=== PATIENT | female | born 1930 | race Caucasian/White ===

== ENCOUNTER 2020-12-29 11:38 | Inpatient (IN) | payer MEDICARE, OTHER ==
[2020-12-29] MEDS ORDERED: Cefepime 2 GM VIAL ONE (12:27)
[2020-12-29 12:43] LABS: #Basophils 0.1 10x3/uL (0.0-0.2); #Monocytes 1.4 10x3/uL (0.0-1.1); #Neutrophils 10.5 10x3/uL (1.5-8.4); %Basophils 0.4 % (0.0-2.0); %Eosinophils 0.2 % (0.0-6.0); %Neutrophils 82.8 % (40.0-75.0); Hemoglobin 10.4 g/dL (12.0-15.5); Mean Corpuscular Volume 87.6 fl (81.6-98.3); Mean Platelet Volume 9.4 fl (7.4-10.4); Platelet Count 321 10x3/uL (150-450); RBC Distribution Width 16.5 % (11.5-14.5); Red Blood Cell (RBC) Count 3.71 10x6/uL (3.90-5.03); White Blood Cell (WBC) Count 12.7 10x3/uL (3.5-10.5)
[2020-12-29] MEDS ORDERED: Vancomycin HCl 1 GM in Sodium Chloride 0.9% 250 ML 250 ML IVPB SCH (12:45)
[2020-12-29 12:51] LABS: Anion Gap 15 mmol/L (10-20); BUN (Urea Nitrogen) 40 mg/dL (9.8-20.1); Calc. Creatinine Clearance 0 mL/min (70-130); Carbon Dioxide 16 mmol/L (23-31); Chloride 112 mmol/L (98-107); Potassium 4.6 mmol/L (3.5-5.1); Sodium 138 mmol/L (136-145)
[2020-12-29 12:52] LABS: ALT (SGPT) 10 U/L (8-55); AST (SGOT) 11 U/L (5-34); Albumin 3.4 g/dL (3.4-4.8); Alkaline Phosphatase 34 U/L (40-110); Bilirubin, Total 0.6 mg/dL (0.2-1.2); CK (CPK) 18 U/L (29-168); Calcium 8.3 mg/dL (7.8-10.44); Globulin 1.9 g/dL (2.4-3.5); Glucose 107 mg/dL (83-110); Lipase 44 U/L (8-78); Protein, Total 5.3 g/dL (5.8-8.1)
[2020-12-29 13:05] LABS: Bilirubin 1+ (Negative); Blood, Urine 25 (Negative); Clarity Slightly Cloudy (Clear); Glucose, Urine (Dipstick) Normal (Negative); Ketone, Urine 5 mg/dL (Negative); Leukocyte 100 (Negative); Nitrite Negative (Negative); Protein, Urine (Dipstick) 100 mg/dl (Neg-Trace); Urobilinogen Normal mg/dL (Less than 2)
[2020-12-29 13:13] LABS: RBC/HPF 0-3 HPF (0-3)
[2020-12-29 13:14] LABS: Bacteria/HPF 3+ HPF (None Seen); Mucous/LPF 1+ LPF (<2+); Squamous Epithelial 0-3 HPF (0-3); Transitional Epithelial 0-3 HPF (None Seen)
[2020-12-29 13:24] LABS: CKMB 3.5 ng/mL (0-6.6)
[2020-12-29] MEDS ORDERED: Aspirin 325 MG TAB ONE (13:42)
[2020-12-29] MEDS ORDERED: Ondansetron PF 4 MG/2 ML Vial ONE (13:42)
[2020-12-29] MEDS ORDERED: Dextrose 5 %-0.45 % NaCl 1,000 ML IV SCH (14:30)
[2020-12-29 15:36] LABS: Magnesium 1.7 mg/dL (1.6-2.6)
[2020-12-29 15:52] LABS: Troponin I 0.079 ng/mL (< 0.028)
[2020-12-29 15:55] LABS: SARS-CoV-2 NAA Rapid Test Not Detected (NotDetected)
[2020-12-29] MEDS ORDERED: Ondansetron ODT 4 MG TAB PO PRN (19:00)
[2020-12-29] MEDS ORDERED: Ondansetron PF 4 MG/2 ML Vial IVP PRN (19:00)
[2020-12-29] MEDS ORDERED: Lorazepam 2 MG/ML VIAL SLOW IVP PRN (19:06)
[2020-12-29] MEDS ORDERED: Lorazepam 2 MG/ML VIAL SLOW IVP SCH (19:15)
[2020-12-29 19:49] LABS: Troponin I 0.078 ng/mL (< 0.028)
[2020-12-29] MEDS ORDERED: Magnesium 2 GM/50 ML 2 GM in Premix Bag 1 BAG IVPB SCH (20:00)
[2020-12-29] MEDS: Sodium Bicarbonate Tab 325 MG TAB PO SCH (20:41)
[2020-12-29] MEDS ORDERED: FLU VACC QS2021-22(65YR UP)/PF 240 MCG/0.7 ML SYRINGE IM ONE (21:30)
[2020-12-29] MEDS ORDERED: Vancomycin 1 GM in Premix Bag 1 BAG IVPB PRN (23:59)
[2020-12-30 04:11] LABS: #Eosinphils 0.2 10x3/uL (0.0-0.5); #Neutrophils 8.1 10x3/uL (1.5-8.4); %Basophils 0.4 % (0.0-2.0); %Eosinophils 1.5 % (0.0-6.0); %Lymphocytes 10.2 % (18.0-47.0); %Monocytes 9.3 % (0.0-10.0); %Neutrophils 78.3 % (40.0-75.0); Hemoglobin 9.9 g/dL (12.0-15.5); Mean Corpuscular HGB CONC 31.7 g/dL (32.0-36.0); Mean Corpuscular Hemoglobin 27.6 pg (27.0-33.0); Mean Corpuscular Volume 86.9 fl (81.6-98.3); Mean Platelet Volume 9.9 fl (7.4-10.4); Platelet Count 313 10x3/uL (150-450); RBC Distribution Width 16.6 % (11.5-14.5); Red Blood Cell (RBC) Count 3.59 10x6/uL (3.90-5.03); White Blood Cell (WBC) Count 10.3 10x3/uL (3.5-10.5)
[2020-12-30 04:20] LABS: Vancomycin, Random 13.9 ug/mL (See Comment)
[2020-12-30 04:25] LABS: Anion Gap 14 mmol/L (10-20); BUN (Urea Nitrogen) 30 mg/dL (9.8-20.1); Calc. Creatinine Clearance 17 mL/min (70-130); Calcium 7.7 mg/dL (7.8-10.44); Carbon Dioxide 12 mmol/L (23-31); Chloride 118 mmol/L (98-107); Glucose 89 mg/dL (83-110); Potassium 4.9 mmol/L (3.5-5.1); Sodium 139 mmol/L (136-145)
[2020-12-30 04:31] LABS: Magnesium 2.1 mg/dL (1.6-2.6)
[2020-12-30] MEDS: Pantoprazole 40 MG VIAL IVP SCH (09:21)
[2020-12-30] MEDS: Aspirin 81 mg Enteric Coated Tablet PO SCH (09:21)
[2020-12-30] MEDS: Sodium Bicarbonate Tab 325 MG TAB PO SCH ×2 (09:21→19:44)
[2020-12-30] MEDS ORDERED: TICAGRELOR 90 MG TABLET PER TUBE SCH (10:30)
[2020-12-30] MEDS ORDERED: ADMIXTURE FEE IVPB SCH (12:00)
[2020-12-30] MEDS ORDERED: SODIUM CHLORIDE IVPB SCH (12:00)
[2020-12-30] MEDS ORDERED: CEFEPIME IVPB SCH (12:00)
[2020-12-30] MEDS ORDERED: Lorazepam 2 MG/ML VIAL SLOW IVP PRN (18:17)
[2020-12-30] MEDS ORDERED: traMADol HCl 50 MG TAB PO PRN (18:47)
[2020-12-30] MEDS: Cefepime 0.5 GM, Admixture Fee 1 EACH in Sodium Chloride 0.9% 100 ML IVPB SCH (19:34)
[2020-12-30] MEDS: TICAGRELOR 90 MG TABLET PER TUBE SCH (19:45)
[2020-12-30] MEDS: risperiDONE 0.5 MG TAB PO SCH (19:53)
[2020-12-31 04:34] LABS: Anion Gap 18 mmol/L (10-20); BUN (Urea Nitrogen) 19 mg/dL (9.8-20.1); Calc. Creatinine Clearance 32 mL/min (70-130); Calcium 8.2 mg/dL (7.8-10.44); Carbon Dioxide 12 mmol/L (23-31); Chloride 115 mmol/L (98-107); Glucose 86 mg/dL (83-110); Magnesium 2.1 mg/dL (1.6-2.6); Potassium 4.4 mmol/L (3.5-5.1); Sodium 141 mmol/L (136-145); Vancomycin, Random 7.1 ug/mL (See Comment)
[2020-12-31] MEDS: Levothyroxine Sodium 50 MCG TAB PO SCH (06:10)
[2020-12-31 07:40] LABS: #Eosinphils 0.1 10x3/uL (0.0-0.5); #Monocytes 1.3 10x3/uL (0.0-1.1); #Neutrophils 9.5 10x3/uL (1.5-8.4); %Basophils 0.3 % (0.0-2.0); %Eosinophils 0.5 % (0.0-6.0); %Monocytes 10.7 % (0.0-10.0); Hemoglobin 10.8 g/dL (12.0-15.5); Mean Corpuscular HGB CONC 30.7 g/dL (32.0-36.0); Mean Corpuscular Hemoglobin 27.8 pg (27.0-33.0); Mean Corpuscular Volume 90.7 fl (81.6-98.3); Mean Platelet Volume 9.9 fl (7.4-10.4); Platelet Count 306 10x3/uL (150-450); RBC Distribution Width 16.4 % (11.5-14.5); Red Blood Cell (RBC) Count 3.88 10x6/uL (3.90-5.03); White Blood Cell (WBC) Count 11.7 10x3/uL (3.5-10.5)
[2020-12-31] MEDS: Aspirin 81 mg Enteric Coated Tablet PO SCH (08:16)
[2020-12-31] MEDS: TICAGRELOR 90 MG TABLET PER TUBE SCH ×2 (08:16→20:06)
[2020-12-31] MEDS: Pantoprazole 40 MG VIAL IVP SCH (08:16)
[2020-12-31] MEDS: predniSONE 10 MG TAB PO SCH (08:16)
[2020-12-31] MEDS: Sodium Bicarbonate Tab 325 MG TAB PO SCH ×2 (08:16→20:22)
[2020-12-31] MEDS ORDERED: Vancomycin HCl 500 MG in Sodium Chloride 0.9% 100 ML IVPB SCH (08:30)
[2020-12-31] MEDS ORDERED: Carvedilol 6.25 MG TAB PO SCH (09:45)
[2020-12-31] MEDS: Cefepime 0.5 GM, Admixture Fee 1 EACH in Sodium Chloride 0.9% 100 ML IVPB SCH (11:08)
[2020-12-31] MEDS: Carvedilol 6.25 MG TAB PO SCH (18:31)
[2020-12-31] MEDS: risperiDONE 0.5 MG TAB PO SCH (20:06)
[2021-01-01] MEDS: Levothyroxine Sodium 50 MCG TAB PO SCH (05:26)
[2021-01-01] MEDS: cefTRIAXone\\ROCEPHIN 2 GM in Sodium Chloride 0.9% 100 ML IVPB SCH (09:01)
[2021-01-01] MEDS: TICAGRELOR 90 MG TABLET PER TUBE SCH ×2 (09:02→20:38)
[2021-01-01] MEDS: Aspirin 81 mg Enteric Coated Tablet PO SCH (09:02)
[2021-01-01] MEDS: Carvedilol 6.25 MG TAB PO SCH ×2 (09:02→17:34)
[2021-01-01] MEDS: Sodium Bicarbonate Tab 325 MG TAB PO SCH ×2 (09:02→20:38)
[2021-01-01] MEDS: Pantoprazole 40 MG VIAL IVP SCH (09:02)
[2021-01-01] MEDS: predniSONE 10 MG TAB PO SCH (09:02)
[2021-01-01] MEDS: risperiDONE 0.5 MG TAB PO SCH (20:37)
[2021-01-02 04:56] VITALS: BMI 19.3
[2021-01-02] MEDS: Levothyroxine Sodium 50 MCG TAB PO SCH (05:50)
[2021-01-02 06:27] LABS: Mean Corpuscular HGB CONC 31.6 g/dL (32.0-36.0); Mean Corpuscular Hemoglobin 27.7 pg (27.0-33.0); Mean Corpuscular Volume 87.7 fl (81.6-98.3); Mean Platelet Volume 9.4 fl (7.4-10.4); Platelet Count 290 10x3/uL (150-450); Red Blood Cell (RBC) Count 3.25 10x6/uL (3.90-5.03); White Blood Cell (WBC) Count 10.1 10x3/uL (3.5-10.5)
[2021-01-02 06:44] LABS: Lactic Acid 0.8 mmol/L (0.5-2.2)
[2021-01-02 06:50] LABS: Anion Gap 14 mmol/L (10-20); BUN (Urea Nitrogen) 16 mg/dL (9.8-20.1); Calc. Creatinine Clearance 34 mL/min (70-130); Calcium 8.8 mg/dL (7.8-10.44); Carbon Dioxide 18 mmol/L (23-31); Chloride 115 mmol/L (98-107); Glucose 92 mg/dL (83-110); Magnesium 1.9 mg/dL (1.6-2.6); Potassium 3.6 mmol/L (3.5-5.1); Sodium 143 mmol/L (136-145)
[2021-01-02] MEDS: Carvedilol 6.25 MG TAB PO SCH ×2 (07:56→16:14)
[2021-01-02] MEDS: Sodium Bicarbonate Tab 325 MG TAB PO SCH ×2 (07:57→23:43)
[2021-01-02] MEDS: predniSONE 10 MG TAB PO SCH (07:57)
[2021-01-02] MEDS: Aspirin 81 mg Enteric Coated Tablet PO SCH (07:57)
[2021-01-02] MEDS: Pantoprazole 40 MG VIAL IVP SCH (07:57)
[2021-01-02] MEDS: TICAGRELOR 90 MG TABLET PER TUBE SCH ×2 (07:58→23:44)
[2021-01-02] MEDS: cefTRIAXone\\ROCEPHIN 2 GM in Sodium Chloride 0.9% 100 ML IVPB SCH (08:01)
[2021-01-02] MEDS ORDERED: Simethicone Chewable 80 MG TAB PO SCH (09:00)
[2021-01-02] MEDS: Lisinopril 5 MG TAB PO SCH (09:19)
[2021-01-02] MEDS: risperiDONE 0.5 MG TAB PO SCH (23:44)
[2021-01-03] MEDS: Levothyroxine Sodium 50 MCG TAB PO SCH (05:56)
[2021-01-03 06:05] LABS: Anion Gap 13 mmol/L (10-20); BUN (Urea Nitrogen) 15 mg/dL (9.8-20.1); Calc. Creatinine Clearance 36 mL/min (70-130); Carbon Dioxide 18 mmol/L (23-31); Chloride 114 mmol/L (98-107); Glucose 86 mg/dL (83-110); Magnesium 1.8 mg/dL (1.6-2.6); Potassium 3.3 mmol/L (3.5-5.1); Sodium 142 mmol/L (136-145)
[2021-01-03] MEDS: Lisinopril 5 MG TAB PO SCH (09:22)
[2021-01-03] MEDS: TICAGRELOR 90 MG TABLET PER TUBE SCH ×2 (09:22→22:55)
[2021-01-03] MEDS: predniSONE 10 MG TAB PO SCH (09:22)
[2021-01-03] MEDS: Pantoprazole 40 MG VIAL IVP SCH (09:22)
[2021-01-03] MEDS: Carvedilol 6.25 MG TAB PO SCH ×2 (09:22→16:26)
[2021-01-03] MEDS: Sodium Bicarbonate Tab 325 MG TAB PO SCH ×2 (09:22→22:55)
[2021-01-03] MEDS: Aspirin 81 mg Enteric Coated Tablet PO SCH (09:22)
[2021-01-03] MEDS: cefTRIAXone\\ROCEPHIN 2 GM in Sodium Chloride 0.9% 100 ML IVPB SCH (09:37)
[2021-01-03] MEDS ORDERED: Lisinopril 10 MG TAB PO SCH (10:00)
[2021-01-03] MEDS: Acetaminophen 325 MG TAB PO PRN (11:22)
[2021-01-03] MEDS: risperiDONE 0.5 MG TAB PO SCH (22:55)
[2021-01-04] MEDS: Levothyroxine Sodium 50 MCG TAB PO SCH (06:10)
[2021-01-04] MEDS: Acetaminophen 325 MG TAB PO PRN (06:54)
[2021-01-04] MEDS: predniSONE 10 MG TAB PO SCH (08:39)
[2021-01-04] MEDS: Pantoprazole 40 MG VIAL IVP SCH (08:39)
[2021-01-04] MEDS: TICAGRELOR 90 MG TABLET PER TUBE SCH ×2 (08:39→21:42)
[2021-01-04] MEDS: Aspirin 81 mg Enteric Coated Tablet PO SCH (08:40)
[2021-01-04] MEDS: Lisinopril 10 MG TAB PO SCH (08:40)
[2021-01-04] MEDS: Carvedilol 6.25 MG TAB PO SCH ×2 (08:40→17:27)
[2021-01-04 09:35] LABS: #Basophils 0.1 10x3/uL (0.0-0.2); #Eosinphils 0.1 10x3/uL (0.0-0.5); #Monocytes 0.8 10x3/uL (0.0-1.1); #Neutrophils 6.7 10x3/uL (1.5-8.4); %Basophils 0.7 % (0.0-2.0); %Lymphocytes 12.6 % (18.0-47.0); %Monocytes 9.4 % (0.0-10.0); %Neutrophils 74.7 % (40.0-75.0); Mean Corpuscular HGB CONC 30.8 g/dL (32.0-36.0); Mean Corpuscular Hemoglobin 27.4 pg (27.0-33.0); Mean Corpuscular Volume 88.8 fl (81.6-98.3); Platelet Count 308 10x3/uL (150-450); Red Blood Cell (RBC) Count 3.58 10x6/uL (3.90-5.03); White Blood Cell (WBC) Count 8.9 10x3/uL (3.5-10.5)
[2021-01-04 09:47] LABS: Anion Gap 16 mmol/L (10-20); BUN (Urea Nitrogen) 16 mg/dL (9.8-20.1); Calc. Creatinine Clearance 33 mL/min (70-130); Calcium 8.8 mg/dL (7.8-10.44); Carbon Dioxide 16 mmol/L (23-31); Chloride 113 mmol/L (98-107); Glucose 78 mg/dL (83-110); Potassium 3.6 mmol/L (3.5-5.1); Sodium 141 mmol/L (136-145)
[2021-01-04 10:03] LABS: Hemoglobin 9.8 g/dL (12.0-15.5)
[2021-01-04] MEDS ORDERED: Mirtazapine 15 MG TAB PO SCH (21:00)
[2021-01-04] MEDS: risperiDONE 0.5 MG TAB PO SCH (21:42)
[2021-01-05] MEDS: Levothyroxine Sodium 50 MCG TAB PO SCH (06:13)
[2021-01-05] MEDS: Carvedilol 6.25 MG TAB PO SCH (09:47)
[2021-01-05] MEDS: Aspirin 81 mg Enteric Coated Tablet PO SCH (09:48)
[2021-01-05] MEDS: Lisinopril 10 MG TAB PO SCH (09:48)
[2021-01-05] MEDS: Pantoprazole 40 MG VIAL IVP SCH (09:48)
[2021-01-05] MEDS: predniSONE 10 MG TAB PO SCH (09:49)
[2021-01-05] MEDS: TICAGRELOR 90 MG TABLET PER TUBE SCH (09:49)
[2021-01-05 11:09] VITALS: TEMP 97.7
[2021-01-05 12:07] VITALS: BP 124/71
== END 2021-01-05 15:00 | DRG 871 ==
LOC: CSHERS 11:38 → CSHIMCU 18:53 → CSHTELE 12-31 14:52
PROVIDERS: ADMIT Hospitalist; ATTEND Internal Medicine
DX: A41.9 Sepsis, unspecified organism (principal); J18.9 Pneumonia, unspecified organism; K56.609 Unspecified intestinal obstruction, unspecified as to partial versus complete obstruction; N39.0 Urinary tract infection, site not specified; N17.9 Acute kidney failure, unspecified; I24.8 Other forms of acute ischemic heart disease; E46 Unspecified protein-calorie malnutrition; Z68.1 Body mass index [BMI] 19.9 or less, adult; E86.0 Dehydration; M31.6 Other giant cell arteritis; I25.10 Atherosclerotic heart disease of native coronary artery without angina pectoris; E78.5 Hyperlipidemia, unspecified; I12.9 Hypertensive chronic kidney disease with stage 1 through stage 4 chronic kidney disease, or unspecified chronic kidney disease; N18.9 Chronic kidney disease, unspecified; E03.9 Hypothyroidism, unspecified; K21.9 Gastro-esophageal reflux disease without esophagitis; F41.9 Anxiety disorder, unspecified; I95.9 Hypotension, unspecified; Z20.822 Contact with and (suspected) exposure to COVID-19; E87.6 Hypokalemia; I25.2 Old myocardial infarction; Z79.82 Long term (current) use of aspirin; Z79.899 Other long term (current) drug therapy; Z95.5 Presence of coronary angioplasty implant and graft; Z90.49 Acquired absence of other specified parts of digestive tract
CPT/HCPCS: 0240U; 36415; 51701; 71045; 74176; 80048; 80053; 80202; 81003; 81015; 82533; 82550; 82553; 82570; 83605; 83690; 83735; 83880; 84300; 84443; 84484; 85025; 85027; 87040; 87077; 87086; 87186; 93005; 93010; 94760; 96365; 96366; 96367; 96375; C9113; J0692; J0696; J2405; J3370; J3475; J3490; J7042; J7512